=== PATIENT | female | born 1970 | race Caucasian/White ===

== ENCOUNTER 2022-07-21 08:06 | Outpatient (CLI) | payer BC, SELFPAY ==
--- NOTE | 2022-07-21 08:15 | MR_ITS ---
[address] [address] Phone:?[phone] Fax:?[phone] Referring Physician Information: Yordan Quiroga M.D. [id number] [facility] [address] Phone:?[phone] Fax:?[phone] Patient:Rut Bermudez D.O.B:?1970 Sex:?Female Phone:?[phone] [facility] MRN:?[id number] Exam Date:?07/21/2022 ? EXAM: MRI of the RIGHT KNEE, without contrast CLINICAL: Right knee pain and swelling. Evaluate for medial meniscal tear versus medial tibial stress reaction. COMPARISONS: None available. TECHNICAL: MR sequences of the right knee: sagittals: PD, PDFS coronals: PD, T2FS axials: PD, PDFS SEDATION: None. CONTRAST: None. FINDINGS: Ligaments: ACL: Intact ACL anteromedial and posterolateral bundles, without sprain or tear. PCL: Intact PCL, without acute or chronic injury. MCL: Intact MCL superficial and deep layers, without injury. LCL: Intact LCL, without injury. Posterolateral corner: Popliteus, biceps femoris, iliotibial band, and the popliteofibular ligament appear intact. Posteromedial corner: Semimembranosus, pes anserine tendons and posterior oblique ligament appear intact. Extensor mechanism: Patellar tendon: Intact, without tendinopathy. Quadriceps tendon: Intact, without tendinopathy. Retinacula: Medial and lateral retinacula are intact. Fat pads: Unremarkable infrapatellar Hoffa's, quadriceps and prefemoral fat pads. Patellofemoral joint: Patella: Full thickness chondral loss involves the medial patellar facet and patellar median ridge with mild subchondral reactive edema/cystic change involving the junction of the patellar median ridge and lateral patellar facet. Deep chondral fissuring involves the lateral facet. Trochlea: Grade 2-3 chondral loss involves the lateral trochlea. Deep chondral fissuring involves the central trochlea on axial series 4 images 14-15. Medial compartment: Medial meniscus: No evidence of discrete meniscal tear or meniscal displacement. Medial cartilage: No significant chondromalacia. Lateral compartment: Lateral meniscus: No evidence of discrete meniscal tear or meniscal displacement. Lateral cartilage: No significant chondromalacia. Knee joint: Effusion: Physiologic right knee effusion. Intra-articular bodies:?No convincing bodies identified. Popliteal cyst: None. Bones: There is increased bone marrow edema involving the medial tibial plateau with an apparent small subchondral fracture line involving the peripheral medial tibial plateau on coronal series 7 images 17-19. Remaining imaged osseous structures appear unremarkable. IMPRESSION: 1. Increased bone marrow edema involving the medial tibial plateau, with an apparent small subchondral fracture involving the peripheral medial tibial plateau. 2. 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 3. No evidence of meniscal tear or ligamentous injury. [facility] Electronically signed on 07/21/2022 1:15:00 PM by Nolan Nolasco D.O.
== END 2022-07-21 08:07 | disposition home or self-care (01) ==
LOC: MRI 08:07
PROVIDERS: Visit Provider Orthopaedic Surgery Sports Medicine
DX: M25.561 Pain in right knee (principal); M22.41 Chondromalacia patellae, right knee; S82.141A Displaced bicondylar fracture of right tibia, initial encounter for closed fracture
CPT/HCPCS: 73721

== ENCOUNTER 2023-05-22 09:38 | Outpatient (CLI) | payer BC, SELFPAY | END 2023-05-22 09:39 | disposition home or self-care (01) | PROVIDERS: PCP Family Medicine; Visit Provider Family Medicine | DX: Z00.00 Encounter for general adult medical examination without abnormal findings (principal); R03.0 Elevated blood-pressure reading, without diagnosis of hypertension; E03.9 Hypothyroidism, unspecified; R53.83 Other fatigue; M25.50 Pain in unspecified joint; Z13.6 Encounter for screening for cardiovascular disorders | CPT/HCPCS: 80053; 80061; 82306; 82607; 84443 ==

== ENCOUNTER 2024-04-15 09:40 | Outpatient (CLI) | payer BC, SELFPAY ==
--- OUTSIDE RECORDS SUMMARY | 2024-04-19 16:22 | XMS_ITS ---
Author Organization [facility] Address [address] [place] [address] Care Team Providers Care Nurse Esthetician Name Role Phone Unavailable Unavailable Unavailable Surgery Details Not on file Complications Check Surgery Details section. Procedure Estimated Blood Loss Check Surgery Details section. Procedure Findings Check Surgery Details section. Procedure Specimens Taken Check Surgery Details section.
--- OUTSIDE RECORDS SUMMARY | 2024-04-19 16:22 | XMS_ITS | Clinical Summary ---
Author Organization [facility] Address [place], [place] [address] Care Team Providers Care Minister Name Role Phone Galileo Montoya NP Primary Care Provider Tiffanie vailable Allergies Active Allergy Reactions Criticality Noted Date Comments Adhesive Tape-Silicones Rash 05/28/2009 Cat Dander Other - Describe In Comment Field 05/02/2008 Medications Medication Sig Dispensed Refills Start Date End Date Status citalopram (CELEXA) 10 mg tablet TAKE 1 TABLET (10 MG) BY MOUTH DAILY. 03/09/2021 Active estradioL (ESTRACE) 0.5 mg tablet TAKE 1 TABLET (0.5 MG) BY MOUTH DAILY. 03/09/2021 Active Advair Diskus 250-50 mcg/dose diskus inhaler INHALE 1 PUFF 2 (TWO) TIMES A DAY. 03/09/2021 Active levothyroxine (SYNTHROID) 75 mcg tablet TAKE 1 TABLET (75 MCG) BY MOUTH EVERY MORNING BEFORE BREAKFAST. 03/09/2021 Active lisinopriL (PRINIVIL; ZESTRIL) 5 mg tablet TAKE 1 TABLET (5 MG) BY MOUTH DAILY. 03/09/2021 Active Contrave 8-90 mg Extended-Release tablet Take 1 Tablet by mouth once daily. 03/14/2021 Active polyethylene glycol-electrolyte (GOLYTELY) 236-22.74-6.74 -5.86 gram suspensionIndication s:Diarrhea, unspecified type Drink 3 quarts the day prior to colonoscopy (until no liquid or solid stool ) and 1 quart 6 hours prior to the colonoscopy 4000 mL 03/15/2021 Active Social History Tobacco Use Types Packs/Day Years Used Date Smoking Tobacco: Never Smokeless Tobacco: Never Tobacco Cessation:Counseling Given: Yes Social Connections Answer Date Recorded Frequency of Communication with Friends and Fami ly Not on file 09/07/2021 Financial Resource Strain Answer Date R ecorded Difficulty of Paying Living Expenses Not on file 09/07/2021 Difficulty of Paying Living Expenses Not on file 09/07/2021 Sex and Gender Information Value Date Recorded Sex Assigned at Not on file Gender Identity Not on file Sexual Orientation Not on file Obstetrics History Last Filed Vital Signs Vital Sign Reading Time Taken Comments Blood Pressure 115/69 03/15/2021 3:11 PM CDT Pulse 68 03/15/2021 3:11 PM CDT Temperature - - Respiratory Rate - - Oxygen Saturation 96% 03/15/2021 3:11 PM CDT Inhaled Oxygen Concentration - - Weight 84.1 kg (185 lb 6.4 oz) 03/15/2021 3:11 P M CDT Height - - Body Mass Index - - Plan of Treatment Health Maintenance Due Date Last Done Comments Tdap 1982 Depression screening for age 12+ 1983 HIV for age 15-65 1986 BMI (ht and wt on same day) for age 18+ 1989 Hepatitis C screening for ag e 18-79 1989 Tetanus booster 1991 Pap test for age 21-65 1992 Lipids for age 45-75 2016 Mammogram for age 45-75 2016 Zoster (shingles) series for age 50+ (1 of 2) 2021 COVID-19 vaccine series (2022-24 season) 2023 08/07/2021, 10/26/2020, 10/05/2020 Influenza for age 50-64 05/08/2024 Colonoscopy through age 75 04/05/203104/05, 04/05/2021 Pneumococcal series for age 6-64 Aged Out No longer eligible b ased on patient's age to complete this topic Procedures Procedure Name Priority Date/Time Associated Diagnosis Comments COLONOSCOPY SCREENING Routine 04/05/2021 10:53 AM CDT Screen for colon cancer from Last 3 Months or Most Recently Relevant to Health Maintenance Results * COLONOSCOPY (04/05/2021 11:18 AM CDT) 04/05/2021 11:1 8 AM CDT Narrative Transcriptions Dean Noriega MD - 04/05/2021 12:33 PM CDT Patient Name: Ashley Bermudez Procedure Date: 04/05/2021 Gender: Female Date of : 1970 Admit Type: Outpatient Procedure: Colonoscopy Proceduralist: Dean Noriega MD , Ann Ibanez, RN(Nurse) Referring MD: Dean Norigea Indications/Pre-Op Diagnosis: Screening for colorectal malignant neoplasm, This is the patient's first colonoscopy, Incidental diarrhea noted Medications: Fentanyl 200 micrograms IV, Midazolam 4 mgIV, The level of sedation administered wasmoderate Procedure Description: The patient had risks, benefits and alternatives explained to andgave informed consent. The patient had a stable cardiopulmonary status and judged an adequate candidate for conscious sedation. The [id number] was passed through the anus and advanced to 8cm into the ileum. The colonoscopy was performed without difficulty. The patient tolerated the procedure well. The quality of the bowel preparation was good. The terminal ileum, ileocecal valve,appendiceal orifice, and rectum were photographed. Complications: No immediate complications. Estimated Blood Loss & Specimen: Estimated blood loss: none. Specimen collected - Yes and sent to Laboratory Findings: The perianal and digital rectal examinations were normal. The terminal ileum appeared normal. Biopsies were taken with a cold forceps for histology. The entire examined colon appeared normal. Biopsies were taken with a cold forceps in the entire colon for histology. Impressions/Post-Op Diagnosis: - The examined portion of the ileum was normal. Biopsied. - The entire examined colon is normal. - Biopsies were taken with a cold forceps for histology in the entire colon. Recommendation: - Patient has a contact number available for emergencies. The signsand symptoms of potential delayed complications were discussed with the patient. Return to normal activities tomorrow. Written discharge instructions were provided to the patient. - Resume previous diet. - Continue present medications. - Await pathology results. - Repeat colonoscopy is recommended. The colonoscopy date will be determined after pathology results from today's exam become available for review. Moderate Sedation: Moderate (conscious) sedation was administered by the endoscopy nurse and supervised by the endoscopist. The following parameters were monitored: oxygen saturation, heart rate, respiratory rate, blood pressure, adequacy of pulmonary ventilation and reponse to care. Please refer to the patient's medical record flowsheets and nursing notes for moderate sedation details. Total physician intraservice time was 27 minutes. Dean Noriega MD 04/05/2021 12:32:44 PM This report has been signed electronically. Note Initiated On: 04/05/2021 11:18 AM Procedure Code(s): --- Professional --- 58816, Colonoscopy, flexible; with biopsy, single or multiple Diagnosis Code(s): --- Professional --- Z12.11, Encounter for screening formalignant neoplasm of colon CPT copyright 2020 [employer]. All rights reserved. The codes documented in this report are preliminary and upon heat curer reviewmay be revised to meet current compliance requirements. Scope In: 11:43:46 AM Scope Withdrawal Time 0 hours 8 minutes 5 seconds Scope Out: 12:09:02 PM Dean Noriega MD PROCEDURE ORD from Last 3 Months or Most Recently Relevant to Health Maintenance Care Teams Minister Relationship Specialty Start Date End Date Galileo Montoya NP PCP - General Nurse Practitioner 04/05/21
--- OUTSIDE RECORDS SUMMARY | 2024-04-19 16:22 | XMS_ITS | Referral Summary ---
Author Organization [facility] Address [address] [place] [address] Care Team Providers Care Assembler Insulator Name Role Phone Randall Candelaria P.A.-C. Primary Care Provider [phone] Source Comments Patient records contain information from all sites at [facility]. For routine questions regarding patient records, call [phone] during business hours, M-F 8:00 AM - 5:00 PM Central Time. Record requests for emergency care only can be directed to [phone] at any time.[facility] Encounters Date Type Department Care Team Description 02/09/2024 Orders Only [facility] PCP TH MNT Yazmin Chow MPAS, P.A.-C. Monitoring For Therapeutic Drug Therapy; Hypothyroidism from Last 3 Months Allergies Active Allergy Reactions Criticality Noted Date Comments Adhesive Tape-Silicones Rash 05/28/2009 Cat Dander Other (see comments) 05/02/2008 Medications Medication Sig Dispensed Refills Start Date End Date Status ibuprofen (for_ADVIL,MOTRIN) 200 mg tablet Take 2 tablets by mouth every 4 (four) hours as needed. 07/22/2016 Active fexofenadine (for_ALLEGRA) 180 mg tablet Take 1 tablet by mouth daily. 05/08/2015 Active scopolamine base (TRANSDERM SCOP) 1 mg over [address] 1 patch on the skin every third day as needed (nausea). 10 patch 1 04/29/2022 Active Advair Diskus 250-50 mcg/act diskus inhaler Inhale 1 puff 2 (two) times a day. Rinse mouth with water after use to reduce aftertaste and incidence of candidiasis. Do not swallow. 180 each 3 06/09/2022 Active albuterol (Ventolin HFA) 90 mcg/actuation inhaler Inhale 2 puffs every 4 (four) hours as needed for wheezing or shortness of breath. 24 g 3 06/09/2022 Active citalopram (CeleXA) 10 mg tablet Take 1 tablet (10 mg total) by mouth daily. 90 tablet 3 06/09/2022 Active lisinopriL (PRINIVIL,ZESTRIL) 5 mg tablet Take 0.5 tablets (2.5 mg total) by mouth daily. 90 tablet 3 06/09/2022 Active levothyroxine (SYNTHROID, LEVOTHROID) 75 mcg tablet TAKE 1 TABLET (75 MCG) BY MOUTH EVERY MORNING BEFORE BREAKFAST. 90 tablet 3 10/30/2022 Active estradioL (ESTRACE) 0.5 mg tablet TAKE ONE-HALF TABLET (0.25MG) BY MOUTH DAILY. 45 tablet 3 10/15/2023 Active Active Problems Problem Noted Date Diagnosed Date Therapy Estrogen Personal History 06/09/2022 Overview (06/09/2022): Per Dr. Avendano note in 2018 recommended to continue on estrogen replacement therapy till 51 or 52 then decreased from 0.5 mg 2.2 5 mg for another 5 years and then could consider discontinuing Assessment & Plan (06/09/2022 4:21 PM CDT): Recommendations were reviewed with patient agreed to start cutting medication in half. Overweight Body Mass Index 25-29.9 Adult 019 Overview (12/28/2020): Current BMI: 28 Current Weight: 82kg Highest Weight: 102 kg Lowest Weight: 175# Goal Weight: 180# Wt loss motivation: BP, feeling better Exercise: Patient has a current exercise routine, which includes stair stepper, walks, free weights: plans to start with new schedule; will work in garden when nice Diet: low carb Water Intake: work on, encouraged Meal Tracking: yes Sleep Apnea: no but sleep worse with higher wt Medications: phentermine previously Contrave started 12.28.20 Discussed that phentermine is recommended couple months at a time. She has trialed this previously and done well but then after the medication she does tend to bump back up. Recommended that Contrave may help cut some the cravings that she notes she has. She is going to work on the above goals and trial Contrave which would be safe for longer term. If this isn't covered by insurance am happy to order is just Wellbutrin. Assessment & Plan (07/09/2020 10:54 AM CRAFT COORDINATOR): We are going to try decreasing her phentermine from 37.5-30. Working continue this through the holidays. At that time we can decide on whether she can go on to the 15 mg are discontinuing altogether. She has lost 57 lb so far and is feeling better overall. Blood pressures are running good she feels like she has more energy and feels like she has adapted some new eating habits and lifestyle habits. Assessment & Plan (11/18/2019 3:29 PM CDT): Plans to continue on 30 mg of phentermine with nurse visits for follow-up until she reached her goal weight of 180 lb. At that time were going to decrease her to the 15 mg a phentermine to continue taper off. Commended on the changes she has made and the improvement with her weight. Blood pressure is also improved with the changes. Unsure if this is related to the low-dose lisinopril or the weight loss. If she continues to run on the low side with could trial a 2.5 mg lisinopril set of a 5. Assessment & Plan (07/22/2019 4:24 PM CRAFT COORDINATOR): Will use phentermine for one-month follow-up with nurse visit in 1 month and 2 month shanae. If she wishes to proceed past 3 months then she needs to follow back up with myself. Has utilize medication before without issues. Do want to watch closely her blood pressure at follow-up with nurses as well as has had some elevation. She wants to try weight loss in diet 1st to help control this. Elevated Blood Pressure 07/22/2019 Overview (07/06/2020): Lisinopril Assessment & Plan (06/09/2022 4:19 PM CDT): Had discontinued lisinopril due to feeling lightheaded we Cong will restart at 2.5 mg half a tablet of 5 mg to avoid the lightheaded feeling. Just concerned as the diastolic is slightly high. She is going to monitor this on her own and let me know in a couple weeks where she is. Assessment & Plan (07/09/2020 10:52 AM CRAFT COORDINATOR): Last BMP was normal in November Blood pressure has improved. She is going to start taking half of the lisinopril and send me blood pressures in 2 weeks. If she is doing well on the lower dose we can always change her to a 2.5 mg tablet or consider even stopping the medication with weight loss she may do okay without it. Anxiety Generalized Disorder 05/07/2015 Overview (07/22/2019): Celexa 10 mg Assessment & Plan (07/22/2019 4:24 PM CRAFT COORDINATOR): Continue current dose. Hypothyroidism 05/07/2015 Overview (07/22/2019): Synthroid 75 mcg Assessment & Plan (06/09/2022 4:19 PM CDT): Well controlled at 2.2 Assessment & Plan (07/06/2020 3:50 PM CDT): TSH 2.1 Lynd Assessment & Plan (07/22/2019 4:23 PM CRAFT COORDINATOR): TSH elevated at 6.2 with weight grain and fatigue and some brain fog. Will increase Synthroid to 75 mcg from 50 mcg. Will help with weight loss as well. Asthma NOS 08/27/2011 Overview (07/22/2019): Albuterol PRN Advair BID Assessment & Plan (06/09/2022 4:19 PM CDT): Concerned that at the beginning of the year they are getting a different insurance and wonders about Advair coverage. Did advise that I am happy to switch to a different brand if it is necessary at that time. Assessment & Plan (07/22/2019 2:50 PM CRAFT COORDINATOR): Well controlled; used albuterol in [place] a few times Rhinitis Allergic 08/27/2011 Overview (07/22/2019): Patricia Flonase inhaler Immunizations Name Administration Dates Next Due DTaP (Infanrix, Tripedia) 11/30/2007 H1N1 All Forms 07/10/2009 HepB Pediatric/Adolescent 01/20/1994,11/18/1993 HepB, Unspecified 02/03/1997 Influenza Split 04/07/2009 Influenza, Unspecified 05/31/2013,2011,06/03/2011,2009,07/21/2008,07/16/2001 PPSV23 07/06/2018 Pneumococcal Conjugate(PCV), Unspecified 06/09/2022(Deferred: Patient decision) RZV (SHINGRIX) 06/09/2022(Deferred: Patient dec ision) SARS-COV-2 (COVID-19) - PFIZ ER (Discontinued)(12 years or older) 08/07/2021,10/26/2020,10/05/2020 Td (Adult), adsorbed 05/19/2017,01/18/1999 Tdap 11/30/2007 influenza vaccine quad (FLUZONE/FLUARIX) (6 months and older)(PF) 08/07/2021,07/09/2020,07/22/2019,2017,05/29/2015,07/10/2009 Social History Tobacco Use Types Packs/Day Years Used Date Smoking Tobacco: Never Smokeless Tobacco: Never Alcohol Use Standard Drinks/Week Comments Yes 0 (1 standard drink = 0.6 oz pur e alcohol) occasional Humiliation, Afraid, Rape, and Kick questionnair e Answer Date Recorded Within the last year, have y ou been afraid of your partner or ex-partner? No 12/28/2020 Within the last year, have y ou been humiliated or emotionally abused in other ways by your partner or ex-partner? No Within the last year, have y ou been kicked, hit, slapped, or otherwise physically hurt by your partner or ex-partner? No 12/28/2020 Within the last year, have y ou been raped or forced to have any kind of sexual activity by your partner or ex-partner? No 12/28/2020 Social Connection and Isolat ion Panel [NHANES] Answer Date Recorded In a typical week, how many times do you talk on the phone with family, friends, or neighbors? More than three times a week 12/28/2020 How often do you get togethe r with friends or relatives? Twice a week 12/28/2020 How often do you attend chur or moravian services? 1 to 4 times per year 12/28/2020 Do you belong to any clubs o r organizations such as mormon groups, unions, fraternal or athletic groups, or school groups? No 12/28/2020 How often do you attend meet ings of the clubs or organizations you belong to? Never 12/28/2020 Are you , , di vorced, , never , or living with a partner? 12/28/2020 AUDIT-C Answer Date Recorded Q1: How often do you have a drink containing alc ohol? 2-4 times a month 12/28/2020 Q2: How many drinks containi ng alcohol do you have on a typical day when you are drinking? 1 or 2 12/28/2020 Q3: How often do you have si x or more drinks on one occasion? Never 12/28/2020 Overall Financial Resource Strain (CARDIA) Answe r Date Recorded How hard is it for you to pa y for the very basics like food, housing, medical care, and heating? Not very hard 12/28/2020 PHQ-2 Answer Date Recorded PHQ-2 Score 0 06/09/2022 [facility] - Occupational Stress Questionnaire Answer Date Recorded Do you feel stress - tense, restless, nervous, or anxious, or unable to sleep at night because your mind is troubled all the time - these days? Only a little 12/28/2020 Exercise Vital Sign Answer Date Recorde d On average, how many days pe r week do you engage in moderate to strenuous exercise (like a brisk walk)? 3 days 12/28/2020 On average, how many minutes do you engage in exercise at this level? 30 min 12/28/2020 Hunger Vital Sign Answer Date Recorded Within the past 12 months, y ou worried that your food would run out before you got the money to buy more. Never true 12/29/19 21 Within the past 12 months, t he food you bought just didn't last and you didn't have money to get more. Never true 12/28/2020 PRAPARE - Transportation Answer Date Re corded In the past 12 months, has l ack of transportation kept you from medical appointments or from getting medications? No 12/07 In the past 12 months, has l ack of transportation kept you from meetings, work, or from getting things needed for daily living? No 12/28/2020 Housing Stability Vital Sign Answer Lui e Recorded In the last 12 months, was t here a time when you were not able to pay the mortgage or rent on time? No 12/28/2020 In the last 12 months, how many places have you lived? 1 12/28/2020 In the last 12 months, was t here a time when you did not have a steady place to sleep or slept in a senior care (including now)? No 12/28/2020 Depression Answer Date Recor ded PHQ-9 Total Score (max 27) 4 06/09 Nutrition Answer Date Recorded Nutrition: EVOO Fat Source Yes 12/28 On average, how many serving s of fruits and vegetables do you eat per day (serving size is equal to 1 cup or approximately the size of a tennis ball)? 2-3 12/28/2020 Dental Answer Date Recorded Dental: Regular Dentist Unknown 02/04/20 24 Employment Answer Date Recorded Employment status Employed and actively working without restrictions 12/28/2020 Education Answer Date Recorded What is the highest level of school you have completed or the highest degree you have received? Associate degree: occupational, technical, or vocational program 03/27/2019 Sex and Gender Information Value Date Recorded Sex Assigned at Female 08/02/2018 4:15 AM CRAFT COORDINATOR Gender Identity Female 08/02/2018 4:15 AM CRAFT COORDINATOR Sexual Orientation Straight 08/02/2018 4: 15 AM CRAFT COORDINATOR Last Filed Vital Signs Vital Sign Reading Time Taken Comments Blood Pressure 134/87 06/09/2022 3:45 PM CDT Pulse 87 06/09/2022 3:45 PM CDT Temperature 36.6 ??C (97.9 ??F) 06/09/2022 3:45 PM CD T Respiratory Rate 18 06/09/2022 3:45 PM CDT Oxygen Saturation 98% 06/09/2022 3:45 PM CDT room air Inhaled Oxygen Concentration - - Weight 86.9 kg (191 lb 9.3 oz) 06/09/2022 3:45 P M CDT Height 171 cm (5' 7.32) 06/09/2022 3:45 PM CDT Body Mass Index 29.72 06/09/2022 3:45 PM CDT Plan of Treatment Not on file Medical Devices Implanted Type Area Industrial Designer Device Identifier Shelf Expiration Date Model / Serial / Lot Sm Frag-Screw Canc Part 4 X 45 - Bronson [id number] Implanted:Qty: 1 on 05/02/2008 Hardware e.g. pins/screws/ rods Depuy Synthes Description:Device Manufactu rer - Synthes. Device Status Text - [id number]. Small Frag-Screw Evan 3.5x24 - Bronson [id number] Implanted:Qty: 1 on 05/02/2008 Hardware e.g. pins/screws/ rods Depuy Synthes Description:Device Manufactu rer - Synthes. Device Status Text - [id number]. Sm Frag-Screw Canc Part 4 X 28 - Bronson [id number] Implanted:Qty: 1 on 05/02/2008 Hardware e.g. pins/screws/ rods Depuy Synthes Description:Device Manufactu rer - Synthes. Device Status Text - [id number]. Syn-Plate 3.5 T 3x5ho Rt - Bronson [id number] Implanted:Qty: 1 on 05/02/2008 Hardware e.g. pins/screws/ rods Depuy Synthes Description:Device Manufactu rer - Synthes. Device Status Text - [id number]. Small Frag-Screw Evan 3.5x16 - Bronson [id number] Implanted:Qty: 1 on 05/02/2008 Hardware e.g. pins/screws/ rods Depuy Synthes Description:Device Manufactu rer - Synthes. Device Status Text - [id number]. Indore-Mitek Mini Quick 2-0 - Bronson [id number] Implanted:Qty: 1 on 05/02/2008 Hardware e.g. pins/screws/ rods Depuy Mitek Description:Device Manufactu rer - Mitek [employer] Device Status Text - [id number]. Sm Frag-Screw Canc Part 4 X 24 - Bronson [id number] Implanted:Qty: 2 on 05/02/2008 Hardware e.g. pins/screws/ rods Depuy Synthes Description:Device Manufactu rer - Synthes. Device Status Text - [id number]. Sm Frag-Screw Canc Part 4 X 30 - Bronson [id number] Implanted:Qty: 1 on 05/02/2008 Hardware e.g. pins/screws/ rods Depuy Synthes Description:Device Manufactu rer - Synthes. Device Status Text - [id number]. Sm Frag-Screw Canc Part 4 X 26 - Bronson [id number] Implanted:Qty: 1 on 05/02/2008 Hardware e.g. pins/screws/ rods Depuy Synthes Description:Device Manufactu rer - Synthes. Device Status Text - [id number]. Small Frag-Screw Evan 3.5x20 - Bronson [id number] Implanted:Qty: 1 on 05/02/2008 Hardware e.g. pins/screws/ rods Depuy Synthes Description:Device Manufactu rer - Synthes. Device Status Text - [id number]. Procedures Procedure Name Priority Date/Time Associated Diagnosis Comments BI BREAST SCREENING BILATERAL WITH TOMOSYNTHESIS RAD - Routine (most inpatients and all outpatients) 08/22/2022 1:00 PM CRAFT COORDINATOR Screening Mammogram Breast Cancer LIPID PANEL, S Routine 05/02/2022 11:13 AM CDT Screening Lipid THYROID-STIMULATING HORMONE-SENSITIVE (S-TSH) Routine 05/02/2022 11:13 AM CDT Hypothyroidism BASIC METABOLIC PANEL, S/P Routine 08/07/2021 4:17 PM CRAFT COORDINATOR Preoperative Exam from Last 3 Months or Most Recently Relevant to Health Maintenance Results * BI Breast Screening Bilateral with Tomosynthesis (08/22/2022 1:00 PM CRAFT COORDINATOR) Anatomical Region Laterality Modality Breast, Breast Imaging RST L OS, Breast Imaging ARZ LOS, Breast Imaging FLA LOS Bilateral Mammography 08/22/2022 4:24 PM CRAFT COORDINATOR Impressions 08/22/2022 4:25 PM CRAFT COORDINATOR Negative. RECOMMENDATION: ??Annual Screening Mammogram ASSESSMENT: ??BI-RADS: 1: Negative. Narrative 08/22/2022 4:25 PM CRAFT COORDINATOR EXAM: ??BI BREAST SCREENING BILATERAL WITH TOMOSYNTHESIS Current study was evaluated with a Computer Aided Detection (CAD) system. INDICATION: ??Screening mammogram. COMPARISON: ??Prior exam(s) were available and reviewed for comparison. DENSITY: ??b. There are scattered areas of fibroglandular density. FINDINGS: ??No mammographic findings of malignancy. Procedure Note Rowdy Torrez M.D. - 08/22/2022 EXAM: BI BREAST SCREENING BILATERAL WITH TOMOSYNTHESIS Current study was evaluated with a Computer Aided Detection (CAD) system. INDICATION: Screening mammogram. COMPARISON: Prior exam(s) were available and reviewed for comparison. DENSITY: b. There are scattered areas of fibroglandular density. FINDINGS: No mammographic findings of malignancy. IMPRESSION: Negative. RECOMMENDATION: Annual Screening Mammogram ASSESSMENT: BI-RADS: 1: Negative. Galileo Montoya APRN C.N.P., M.S.N. IMG BI PROCEDURES * Lipid Panel (05/02/2022 11:13 AM CDT) Triglycerides 88 mg/dL 05/02/2022 12:08 PM CDT AUST Comment: ----REFERENCE VALUE---- Normal: <150 mg/dL Borderline High: 150-199 mg/dL High: 200-499 mg/dL Very High: > or =500 mg/dL Cholesterol, Total 189 mg/dL 2021 12:08 PM CDT AUST Comment: ----REFERENCE VALUE---- Desirable: < 200 mg/dL Borderline High: 200 - 239 mg/dL High: > or = 240 mg/dL Cholesterol, LDL, Calculated 116 mg/dL 05/02/2022 12:08 PM CDT AUST Comment: ----REFERENCE VALUE---- Desirable: <100 mg/dL Above Desirable: 100-129 mg/dL Borderline High: 130-159 mg/dL High: 160-189 mg/dL Very High: >=190 mg/dL ----ADDITIONAL INFORMATION---- LDL cholesterol calculated using the Padgett/NIH equation. Cholesterol, HDL 57 >=50 mg/dL 05/02/20 12:08 PM CDT [facility]UST Cholesterol, Non-HDL, Calculated 132 mg/dL 05/02/2022 12:08 PM CDT AUST Comment: ----REFERENCE VALUE---- Desirable: <130 mg/dL Above Desirable: 130-159 mg/dL Borderline High: 160-189 mg/dL High: 190-219 mg/dL Very High: > or =220 mg/dL Fasting (8 HR or more) No 05/02/2022 11:15 AM CDT [facility]UST Blood (Blood, Venous) 05/02/2022 11:13 AM CDT 05/02/2022 11:15 AM CDT Jorge L Greenwood APRNNJimmy., M.S.N. LAB BLOOD ADD-ON Performing Organization Address City/[facility]/ZIP Co de Phone Number [facility] [address] [place] [address], [facility] [address] [place] [address] * S-TSH (Thyroid-Stimulating Hormone - Sensitive) (05/02/2022 11:13 AM CDT) TSH, Sensitive 2.2 0.3 - 4.2 mIU/L 05/02/2022 12:18 PM CDT [facility]UST Blood (Blood, Venous) 05/02/2022 11:13 AM CDT 05/02/2022 11:15 AM CDT Jorge L Greenwood APRNNJimmy., M.S.N. LAB BLOOD ADD-ON Performing Organization Address [facility]/ZIP Co de Phone Number [facility] [address] [place] [address], [facility] [address] [place] [address] * Basic Metabolic Panel (08/07/2021 4:17 PM CRAFT COORDINATOR) Potassium, P 4.4 3.6 - 5.2 mmol/L 08/07/2021 4:37 PM CRAFT COORDINATOR FIDENCIO Sodium, P 137 135 - 145 mmol/L 08/07/2021 4:37 PM CRAFT COORDINATOR FIDENCIO Chloride, P 102 98 - 107 mmol/L 08/07/2021 4:37 PM CRAFT COORDINATOR FIDENCIO Bicarbonate, P 26 22 - 29 mmol/L 08/07/2021 4:37 PM CRAFT COORDINATOR FIDENCIO Anion Gap, P 9 7 - 15 08/07/2021 4:37 PM CRAFT COORDINATOR FIDENCIO BUN (Blood Urea Nitrogen), P 17 6 - 21 mg/dL 08/07/2021 4:37 PM CRAFT COORDINATOR FIDENCIO Creatinine 0.78 0.59 - 1.04 mg/dL 08/07/2021 4:37 PM CRAFT COORDINATOR FIDENCIO eGFR-Black/Afric an Cypriot >90 >=60 mL/min/BSA 08/07/2021 4:37 PM CRAFT COORDINATOR FIDENCIO Comment: ----ADDITIONAL INFORMATION---- Estimated GFR calculated using the 2009 CKD_EPI creatinine equation. eGFR Non-Black/Regine n Cypriot 89 >=60 mL/min/BSA 08/07/2021 4:37 PM CRAFT COORDINATOR FIDENCIO Comment: ----ADDITIONAL INFORMATION---- Estimated GFR calculated using the 2009 CKD_EPI creatinine equation. Calcium, Total, P 9.5 8.6 - 10.0 mg/dL 08/07/2021 4:37 PM CRAFT COORDINATOR FIDENCIO Glucose, P 103 70 - 140 mg/dL 08/07/2021 4:37 PM CRAFT COORDINATOR FIDENCIO Blood (Blood, Venous) 08/07/2021 4:17 PM CRAFT COORDINATOR 08/07/2021 4:18 PM CRAFT COORDINATOR Elyssa Altman APRN, C.N.P., D.N.P. L AB BLOOD ADD-ON [facility] [address] [facility] [place], [place] [address], [facility] [place] [facility] [place] [address] [place] [address] from Last 3 Months or Most Recently Relevant to Health Maintenance Care Teams Assembler Insulator Relationship Specialty Start Date End Date Randall Candelaria P.A.-C. [address] [place] [id number] PCP - General 03/09/24
--- OUTSIDE RECORDS SUMMARY | 2024-04-19 16:22 | XMS_ITS | Clinical Summary ---
Author Organization [facility] Address [address] [place] [id number] Care Team Providers Care House Furnishings Supervisor Name Role Phone Randall Candelaria P.A.-C. Primary Care Provider [phone] Source Comments Patient records contain information from all sites at [facility]. For routine questions regarding patient records, call [phone] during business hours, M-F 8:00 AM - 5:00 PM Central Time. Record requests for emergency care only can be directed to [phone] at any time.[facility] Allergies Active Allergy Reactions Criticality Noted Date [...] worse with higher wt Medications: phentermine previously Varg[place]se started 12.28.20 Discussed that phentermine is recommended [...] Wellbutrin. Assessment & Plan (07/09/2020 10:54 AM CUSTOMER SERVICE ADVOCATE): We are going to try decreasing her [...] 5. Assessment & Plan (07/22/2019 4:24 PM CUSTOMER SERVICE ADVOCATE): Will use phentermine for one-month follow-up with [...] is. Assessment & Plan (07/09/2020 10:52 AM CUSTOMER SERVICE ADVOCATE): Last BMP was normal in November Blood [...] mg Assessment & Plan (07/22/2019 4:24 PM CUSTOMER SERVICE ADVOCATE): Continue current dose. Hypothyroidism 05/07/2015 Overview (07/22/2019): Synthroid 75 mcg Assessment & Plan (06/09/2022 4:19 PM CDT): Well controlled at 2.2 Assessment & Plan (07/06/2020 3:50 PM CDT): TSH 2.1 Albert Assessment & Plan (07/22/2019 4:23 PM CUSTOMER SERVICE ADVOCATE): TSH elevated at 6.2 with weight grain [...] time. Assessment & Plan (07/22/2019 2:50 PM CUSTOMER SERVICE ADVOCATE): Well controlled; used albuterol in [place] a few times Rhinitis Allergic 08/27/2011 Overview (07/22/2019): Patricia Flonase inhaler Encounters Date Type Department Care Team Description 02/09/2024 Orders Only [facility] PCP [facility] MNT Yazmin Chow, MPAS, P.A.-C. Monitoring For Therapeutic Drug Therapy; Hypothyroidism from Last 3 Months Immunizations Name Administration Dates Next Due DTaP [...] quad (FLUZONE/FLUARIX) (6 months and older)(PF) 08/07/2021,07/09/2020,07/22/2019,2017,05/29/2015,07/10/2009 Family History Medical History Relation Name Comments Asthma Brother Colectomy Father Colitis Father Breast cancer Mother Relation Name Status Comments Brother Father Mother Social History Tobacco Use Types Packs/Day Years [...] How often do you attend chur or denominational services? 1 to 4 times per year 12/28/2020 Do you belong to any clubs o r organizations such as methodist groups, unions, fraternal or athletic groups, or [...] Answer Date Recorded PHQ-2 Score 0 06/09/2022 [facility] [place] of Occupat ional Health - Occupational Stress [...] place to sleep or slept in a fpc (including now)? No 12/28/2020 Depression Answer Date [...] Sex Assigned at Female 08/02/2018 4:15 AM CUSTOMER SERVICE ADVOCATE Gender Identity Female 08/02/2018 4:15 AM CUSTOMER SERVICE ADVOCATE Sexual Orientation Straight 08/02/2018 4: 15 AM CUSTOMER SERVICE ADVOCATE Last Filed Vital Signs Vital Sign Reading [...] 06/09/2022 3:45 PM CDT Plan of Treatment Health Maintenance Due Date Last Done Comments CT Colonography 1971 Cologuard 1971 FIT 1971 Hepatitis C Screening 1971 Hepatitis B Vaccines (2 of 3 - 19+ 3-dose series) 03/03/1997 02/03/1997, 01/20/1994, 11/18/1993 Pneumococcal vaccine (0-64 y ears) (2 of 2 - PCV) 07/06/2019 07/06/2018 Zoster Vaccines (1 of 2) 2021 Creatinine Level (Kidney Fun ction Test) 08/07/2022 08/07/2021, 11/15/2019, 03/28/2015, Additional history exists Potassium Level 08/07/2022 08/07/2021, 11/05, 03/28/2015, Additional history exists Sodium Level 08/07/2022 08/07/2021, 11/05, 03/28/2015, Additional history exists Thyroid Stimulating Hormone (TSH) test for thyroid function 05/02/2023 05/02/2022, 04/17/2020, 11/15/2019, Additional history exists COVID-19 Vaccine (2022-2 4 season) 2023 04/25/2022, 08/07/2021, 10/26/2020, Additional history exists Mammogram 08/22/2023 08/22/2022, 12/0 09/2019, 07/05/2019, Additional history exists Depression Screening (Annual PHQ-2) 09/07/2023 Influenza Vaccine (#1) 2024 3, 08/07/2021, 07/09/2020, Additional history exists Fasting Glucose for Diabetes Screening 08/07/2024 08/07/2021, 11/15/2019, 07/05/2019, Additional history exists Lipid (Cholesterol) Screening 05/02/2027, 05/06/2016, 02/21/2013 DTaP,Tdap,and Td Vaccines (4 - Td or Tdap) 05/19/2027 05/19/2017, 11/30/2007, 11/30/2007, Additional history exists Colonoscopy 04/05/2031 04/05/2021 Colorectal Cancer Screening 04/05/2031 HIV Screening Completed 11/04/2008 Medical Devices Implanted Type Area Manufacturing Teacher Device Identifier Shelf Expiration Date Model / Serial / Lot Sm Frag-Screw Canc Part 4 X 45 - Bronson [id number] Implanted:Qty: 1 on 05/02/2008 Hardware e.g. pins/screws/ rods Depuy Synthes Description:Device Manufactu rer - Synthes. Device Status Text - [id number]. Small Frag-Screw Evan 3.5x24 - Bronson [id number] Implanted:Qty: 1 on 05/02/2008 Hardware e.g. pins/screws/ rods Depuy Synthes Description:Device Manufactu rer - Synthes. Device Status Text - [id number]. Sm Frag-Screw Canc Part 4 X 28 - Bronson [id number] Implanted:Qty: 1 on 05/02/2008 Hardware e.g. pins/screws/ rods Depuy Synthes Description:Device Manufactu rer - Synthes. Device Status Text - [id number]. Syn-Plate 3.5 T 3x5ho Rt - Bronson [id number] Implanted:Qty: 1 on 05/02/2008 Hardware e.g. pins/screws/ rods Depuy Synthes Description:Device Manufactu rer - Synthes. Device Status Text - [id number]. Small Frag-Screw Evan 3.5x16 - Bronson [id number] Implanted:Qty: 1 on 05/02/2008 Hardware e.g. pins/screws/ rods Depuy Synthes Description:Device Manufactu rer - Synthes. Device Status Text - [id number]. [place]-Mitek Mini Quick 2-0 - Bronson [id number] Implanted:Qty: 1 on 05/02/2008 Hardware e.g. pins/screws/ rods Depuy Mitek Description:Device Manufactu rer - [employer] Device Status Text - [id number]. Sm Frag-Screw Canc Part 4 X 24 - Bronson [id number] Implanted:Qty: 2 on 05/02/2008 Hardware e.g. pins/screws/ rods Depuy Synthes Description:Device Manufactu rer - Synthes. Device Status Text - [id number]. Sm Frag-Screw Canc Part 4 X 30 - Bronson [id number] Implanted:Qty: 1 on 05/02/2008 Hardware e.g. pins/screws/ rods Depuy Synthes Description:Device Manufactu rer - Synthes. Device Status Text - [id number]. Sm Frag-Screw Canc Part 4 X 26 - Bronson [id number] Implanted:Qty: 1 on 05/02/2008 Hardware e.g. pins/screws/ rods Depuy Synthes Description:Device Manufactu rer - Synthes. Device Status Text - [id number]. Small Frag-Screw Evan 3.5x20 - Bronson [id number] Implanted:Qty: 1 on 05/02/2008 Hardware e.g. pins/screws/ rods Depuy Synthes Description:Device Manufactu rer - Synthes. Device Status Text - HARDWARE-7599. Procedures Procedure Name Priority Date/Time Associated Diagnosis Comments BI BREAST SCREENING BILATERAL WITH TOMOSYNTHESIS RAD - Routine (most inpatients and all outpatients) 08/22/2022 1:00 PM CUSTOMER SERVICE ADVOCATE Screening Mammogram Breast Cancer LIPID PANEL, S Routine 05/02/2022 11:13 AM CDT Screening Lipid THYROID-STIMULATING HORMONE-SENSITIVE (S-TSH) Routine 05/02/2022 11:13 AM CDT Hypothyroidism BASIC METABOLIC PANEL, S/P Routine 08/07/2021 4:17 PM CUSTOMER SERVICE ADVOCATE Preoperative Exam from Last 3 Months or Most Recently Relevant to Health Maintenance Results * BI Breast Screening Bilateral with Tomosynthesis (08/22/2022 1:00 PM CUSTOMER SERVICE ADVOCATE) Anatomical Region Laterality Modality Breast, Breast Imaging RST L OS, Breast Imaging ARZ LOS, Breast Imaging FLA LOS Bilateral Mammography 08/22/2022 4:24 PM CUSTOMER SERVICE ADVOCATE Impressions 08/22/2022 4:25 PM CUSTOMER SERVICE ADVOCATE Negative. RECOMMENDATION: ??Annual Screening Mammogram ASSESSMENT: ??BI-RADS: 1: Negative. Narrative 08/22/2022 4:25 PM CUSTOMER SERVICE ADVOCATE EXAM: ??BI BREAST SCREENING BILATERAL WITH TOMOSYNTHESIS [...] L Greenwood APRNNJimmy., M.S.N. LAB BLOOD ADD-ON [facility] [address] [place] [address], [facility] [place] [facility] - [facility] [address] [place] [address] * S-TSH (Thyroid-Stimulating Hormone - Sensitive) (05/02/2022 11:13 AM CDT) TSH, Sensitive 2.2 0.3 - 4.2 mIU/L 05/02/2022 12:18 PM CDT AUST Blood (Blood, Venous) 05/02/2022 11:13 AM CDT 05/02/2022 11:15 AM CDT Jorge L Greenwood APRNNJimmy., M.S.N. LAB BLOOD ADD-ON [facility] [address] [place] [address], [facility] - [facility] [address] [place] [address] * Basic Metabolic Panel (08/07/2021 4:17 PM CUSTOMER SERVICE ADVOCATE) Potassium, P 4.4 3.6 - 5.2 mmol/L 08/07/2021 4:37 PM CUSTOMER SERVICE ADVOCATE [facility] Sodium, P 137 135 - 145 mmol/L 08/07/2021 4:37 PM CUSTOMER SERVICE ADVOCATE [facility] Chloride, P 102 98 - 107 mmol/L 08/07/2021 4:37 PM CUSTOMER SERVICE ADVOCATE FIDENCIO Bicarbonate, P 26 22 - 29 mmol/L 08/07/2021 4:37 PM CUSTOMER SERVICE ADVOCATE [facility] Anion Gap, P 9 7 - 15 08/07/2021 4:37 PM CUSTOMER SERVICE ADVOCATE [facility] BUN (Blood Urea Nitrogen), P 17 6 - 21 mg/dL 08/07/2021 4:37 PM CUSTOMER SERVICE ADVOCATE [facility] Creatinine 0.78 0.59 - 1.04 mg/dL 08/07/2021 4:37 PM CUSTOMER SERVICE ADVOCATE [facility] eGFR-Black/Afric an Belgian >90 >=60 mL/min/BSA 08/07/2021 4:37 PM CUSTOMER SERVICE ADVOCATE [facility] Comment: ----ADDITIONAL INFORMATION---- Estimated GFR calculated using the 2009 CKD_EPI creatinine equation. eGFR Non-Black/Regine n Belgian 89 >=60 mL/min/BSA 08/07/2021 4:37 PM CUSTOMER SERVICE ADVOCATE [facility] Comment: ----ADDITIONAL INFORMATION---- Estimated GFR calculated using the 2009 CKD_EPI creatinine equation. Calcium, Total, P 9.5 8.6 - 10.0 mg/dL 08/07/2021 4:37 PM CUSTOMER SERVICE ADVOCATE [facility] Glucose, P 103 70 - 140 mg/dL 08/07/2021 4:37 PM CUSTOMER SERVICE ADVOCATE [facility] Blood (Blood, Venous) 08/07/2021 4:17 PM CUSTOMER SERVICE ADVOCATE 08/07/2021 4:18 PM CUSTOMER SERVICE ADVOCATE Elyssa Altman APRN, C.N.P., D.N.P. L AB BLOOD ADD-ON [facility] [address] [place] [address], [facility] [address] [place] [address] from Last 3 Months or Most Recently Relevant to Health Maintenance Care Teams House Furnishings Supervisor Relationship Specialty Start Date End Date Randall Candelaria P.A.-C. [address] [place] [phone] PCP - General 03/09/24
--- OUTSIDE RECORDS SUMMARY | 2024-04-19 16:22 | XMS_ITS | Encounter Summary ---
Author Organization [facility] Address [address] [place] [address] Care Team Providers Care International Trade Teacher Name Role Phone Yazmin Chow, P.A.-C. Primary Care Prov ider Encounter Details Date Type Department Care Team (Late st Contact Info) Description 02/09/2024 Orders Only [facility] PCP [facility] MNT Yazmin Chow MPAS, P.A.-C. [address] [place] [address] Monitoring For Therapeutic Drug Therapy; Hypothyroidism Social History Tobacco Use Types Packs/Day Years [...] 12/28/2020 How often do you attend chur ch or orthodox services? 1 to 4 times per year 12/28/2020 Do you belong to any clubs o r organizations such as baptism groups, unions, fraternal or athletic groups, or [...] Answer Date Recorded PHQ-2 Score 0 06/09/2022 [facility] Occupat ional [facility] - Occupational Stress Questionnaire Answer Date Recorded [...] place to sleep or slept in a mcc (including now)? No 12/28/2020 Depression Answer Date [...] Date Recorded Dental: Regular Dentist Unknown 02/04/20 Employment Answer Date Recorded Employment status Employed and actively working without restrictions 12/28/2020 Education Answer Date Recorded What is the highest level of school you have completed or the highest degree you have received? Associate degree: occupational, technical, or vocational program 03/27/2019 Sex and Gender Information Value Date Recorded Sex Assigned at Female 08/02/2018 4:15 AM SIX SIGMA PROJECT MANAGER Gender Identity Female 08/02/2018 4:15 AM SIX SIGMA PROJECT MANAGER Sexual Orientation Straight 08/02/2018 4: 15 AM SIX SIGMA PROJECT MANAGER documented as of this encounter Plan of Treatment Scheduled Orders Name Type Priority Associated Diagnoses Orde r Schedule Basic Metabolic Panel Lab Routine Monitoring For Therapeutic Drug Therapy Expected: 02/23/2024, Expires: 08/07/2024 S-TSH (Thyroid-Stimulating Hormone - Sensitive) Lab Routine Hypothyroidism Expected: 02/23/2024, Expires: 08/07/2024 documented as of this encounter Visit Diagnoses Diagnosis Monitoring For Therapeutic Drug Therapy Hypothyroidism documented in this encounter Additional Health Concerns Assessment Noted Time PHQ-9 Depression Total Score: 4 06/09/20 22 3:54 PM CDT documented as of this encounter Care Teams International Trade Teacher Relationship Specialty Start Date End Date Yazmin Chow MPAS, P.A.-C. [address] [place] [address] PCP - General 09/24/22 03/08/24 documented as of this encounter
== END 2024-04-15 09:41 | disposition home or self-care (01) ==
LOC: NFLDREF 04-19 16:20
PROVIDERS: PCP Family Medicine; Referring Provider Family Medicine; Visit Provider Family Medicine
DX: R19.7 Diarrhea, unspecified (principal)
CPT/HCPCS: 87045; 87046; 87177; 87209; 87427; 87493; 87505

== ENCOUNTER 2024-05-30 07:52 | Outpatient (CLI) | payer BC, SELFPAY ==
--- OUTSIDE RECORDS SUMMARY | 2024-06-02 11:35 | XMS_ITS | Clinical Summary ---
Author Organization [facility] Address [place], [place] [address] Care Team Providers Care Press Operator Instant Print Shop Name Role Phone Galileo Montoya NP Primary [...] (1 of 2) 2021 COVID-19 vaccine series (2023- season) 2024 08/07/2021, 10/26/2020, 10/05/2020 Influenza for age 50-64 [...] , Ann Ibanez, RN(Nurse) Referring MD: Dean Noriega Indications/Pre-Op Diagnosis: Screening for colorectal malignant neoplasm, This is the patient's first colonoscopy, Incidental diarrhea noted Medications: Fentanyl 200 micrograms IV, Midazolam 4 mgIV, The level of sedation administered wasmoderate Procedure Description: The patient had risks, benefits and alternatives explained to andgave informed consent. The patient had a stable cardiopulmonary status and judged an adequate candidate for conscious sedation. The [id number] was passed through the anus and advanced [...] 11:18 AM Procedure Code(s): --- Professional --- 10490, Colonoscopy, flexible; with biopsy, single or multiple Diagnosis Code(s): --- Professional --- Z12.11, Encounter for screening formalignant neoplasm of colon CPT copyright 2020 [employer]. All rights reserved. The codes documented in this report are preliminary and upon scheduling manager reviewmay be revised to meet current compliance requirements. Scope In: 11:43:46 AM Scope Withdrawal Time 0 hours 8 minutes 5 seconds Scope Out: 12:09:02 PM Dean Noriega MD PROCEDURE ORD from Last 3 Months or Most Recently Relevant to Health Maintenance Care Teams Press Operator Instant Print Shop Relationship Specialty Start Date End Date Galileo Montoya NP PCP - General Nurse Practitioner 04/05/21
== END 2024-05-30 07:53 | disposition home or self-care (01) ==
PROVIDERS: PCP Family Medicine; Referring Provider Family Medicine; Visit Provider Family Medicine
DX: R79.89 Other specified abnormal findings of blood chemistry (principal); E03.9 Hypothyroidism, unspecified; E78.5 Hyperlipidemia, unspecified; R73.9 Hyperglycemia, unspecified; Z11.59 Encounter for screening for other viral diseases; Z91.89 Other specified personal risk factors, not elsewhere classified
CPT/HCPCS: 80053; 80061; 84443; 86803

== ENCOUNTER 2024-08-12 14:33 | Outpatient (CLI) | payer BC, SELFPAY ==
--- OUTSIDE RECORDS SUMMARY | 2024-08-12 14:35 | XMS_ITS | Data Portability ---
Author Organization [place] [facility] [place] Address [address] [place] [address] Care Team Providers Care Manager Software Name Role Phone CINDA LORENZO Primary Care Provider Assessment Encounter Date Assessment Date Assessment LastModified by Organization Details LastModified Time 07/04/2024 07/04/2024 Time spent reviewing the patient s medical record, diagnostic studies, performing a focused history and physical exam, educating the patient regarding the natural history of disease as it pertains to the patient, discussing treatment options and alternatives, medical decision making, and chartin-59 minutes. Not available 07/04/2024 14:24:24 Plan of Treatment Reminders Order Date Submit Date Provider Last Modified By Organization Details Last Modified Time Details Appointments Post Conserv ative Treatme ntRVT 2024 01:00P [facility] Not available Not available Not available Post Conserv ative Treatme nt MD 2024 01:30P [facility] Not available Not available Not available Lab None recorde d. Referral None recorde d. Procedures None recorde d. Surgeries None recorde d. Imaging None recorde d. Medication Orders None recorde d. Patient TargetsNo targets recorded. Patient Instructions Encounter Date Encounter Id Patient Instructions Last Modified By Organization Details Last Modified Time 07/04/2024 [id number] PROCEDURE RECOMMENDATIONS 1. Endovenous radiofrequency ablation of the left great saphenous vein (49215) 2. Endovenous radiofrequency ablation of the right great saphenous vein (49251) 3. Varithena ablation of the residual left great saphenous vein (92071) 4. Varithena ablation of the residual right great saphenous vein (95099) 5. Ultrasound guided foam sclerotherapy of the residual incompetent tributaries and varicosities greater than 3.0mm of the left leg (38277, 66592) - 2 sessions 6. Ultrasound guided foam sclerotherapy of the residual incompetent tributaries and varicosities greater than 3.0mm of the right leg (09931, 79408) - 2 sessions Not available 07/04/2024 14:24:46 Reason for Referral None Reported. Problems Name Problem SNOMED Code Status Onset Date Resolution Date Notes Provider Name and Address Organization Details Recorded Time Hypothyroidism 56842825 Active 2023 Demetra Fisher PA-C [address], [place], [address], [place] [facility] 13:55:15 Asthma 605658455 Active 2023 LENY BairesC [address], [place], [address], [facility] - [facility] 13:55:26 Problem Notes None recorded. Procedures Surgical History Date Name Laterality Status Provider Name and Address Organization Details Recorded Time Colonoscopy completed Demetra Fisher PA-C [address], [place], [address], [facility] - [facility] 07/04/2024 13:55:02 Hysterectomy completed LENY BairesC [address], [place], [address], [facility] - [facility] 07/04/2024 13:55:03 Orthopedic Surgery completed Demetra Fisher PA-C [address], [place], [address], [facility] - [facility] 07/04/2024 13:55:41 Hand Surgery completed JACY Baires-Anette [address], [place], [address], [facility] - [facility] 07/04/2024 13:55:03 Imaging Results None recorded. Procedure Notes None recorded. Medical Equipment None Reported. Medications Name Sig Start Date Stop Date Status Note LastModified by Organization Details LastModified Time fluticasone 250 mcg-salmete rol 50 mcg/dose blistr powdr for inhalation INHALE 1 PUFF INFECTION BY MOUTH TWICE A DAY active Not Available Not Available No t Available citalopram 10 mg tablet TAKE ONE TABLET(10 MG) BY MOUTH EVERY DAY active Not Available Not Available No t Available prednisone 20 mg tablet TAKE ONE TABLET BY MOUTH (20MG) TWICE A DAY 07/01 completed Not Available Not Available Not Available acetaminoph en 300 mg-codeine 30 mg tablet TAKE 1 TO 2 TABLETS BY MOUTH EVERY 4 TO 6 HOURS NEEDED. MAY CAUSE DROWSINES S 07/01 completed Not Available Not Available Not Available levothyroxi ne 75 mcg tablet TAKE ONE TABLET(75 MCG) BY MOUTH EVERY DAY active Not Available Not Available No t Available estradiol 0.5 mg tablet TAKE ONE-HALF TABLET (0.25MG) BY MOUTH DAILY. active Not Available Not Available No t Available albuterol sulfate HFA 90 mcg/actuati on aerosol inhaler INHALE 2 PUFF BY MOUTH EVERY 6-8 HOURS NEEDED FOR SHORTNESS OF BREATH OR WHEEZING 07/01 completed Not Available Not Available Not Available Vitals Date Recorded Body height Body mass index (BMI) Body weight Provider Name and Address Organization Details Last Updated DateTime 07/04/2024 170.18 cm 24.6 kg/m2 27481 g Demetra Fisher PA-C [address] [place], [address], [facility] 07/04/2024 13:54:38 Social History Question Answer Notes LastModified by Organizat ion Details LastModified Time Tobacco Smoking Status Never Smoker Demetra Fisher PA-C [address] [place], [address], [facility] 07/04/2024 13:54:59 What Is Your Level Of Alcohol Consumption? Occasional Information not available 07/04/2024 How Many Times Per Week Do You Consume Alcohol? Less Than 1 Time Per Week Information not available 07/04/2024 Are You Currently Employed? 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 3-4 Times Per Week Information not available 07/04/2024 Sex: Unknown Functional Status Question Answer Note LastModified by Organization D etails LastModified Time What is your exercise level? Moderate Information not available 07/04/2024 Mental Status None recorded. Family History Relationship Description Onset Age of this Age Resolved Age Notes LastModified by Organization Details LastModified Time Mother Varicose veins of lower extremity Not available 2023 13:54:44 Unspecified Relation Varicose veins of lower extremity Not available 2023 13:54:44 Medical History Condition Response Hypothyroidism Y Asthma Y Gynecological History Statement/Question Response How many childrens do you have? 2 Number of Miscarriages 0 Number of Pregnancies 2 Are you or planning to become p regnant? N Are you ? N Obstetrics History GPAL:G 0 P 0 0 0 0 Past Encounters Encounter ID Performer Location Encounter Start Date Encounter Closed Date Diagnosis/Indication Diagnosis SNOMED-CT Code Diagnosis ICD10 Code [id number] Kathy Thurman MD [facility] [address] [place] [address] 07/04/2024 13:38:20 07/07/2024 04:06:27 Pain co-occurrent and due to varicose veins of bilateral legs [id number] I83.813 [id number] Kathy Thurman MD [facility] [address] [place] [address] 07/04/2024 13:38:28 07/05/2024 10:57:57 Pain co-occurrent and due to varicose veins of bilateral legs 5002139874 6683782 I83.813 Health Concerns Section Related Observation LastModified by Organization Detai ls LastModified Time None Recorded Concern Status LastModified by Organization Details LastModified Time None Recorded Advance Directives Directive None Recorded Payers Encounter Date Sequence Insurance Name Policy Number Policy [place] Covered Member ID [place] Member ID Guarantor Name 07/04/2024 1 [place] [id number] Jesu Bermudez [id number] Ashley Bermudez 07/04/2024 1 [place] [id number] Jesu Bermudez [id number] Ashley Bermudez Notes Date Note Type Note Provider Name and Address Organization Details Recorded Time 07/04/2024 text/html PVC (Q4U) InitialReported bypatient.Please select the location of your concernRight Leg: Ankle/Foot; Left Leg: Ankle/Foot I have had symptoms:More than 1 year Have you ever experienced any of the following symptoms?Pain;Aching;T hrobbing;Tired legs/Fatigue;Heaviness ;Numbness/Tingling;Swe lling;Difficulty healing wounds/ulcers;Skin discoloration;Spider veins;Bulging veins When do the symptoms occur?Sitting;Standing up What activities of daily living do the symptoms affect?Sleep;Exercise; Work;Chores;Leisure Activities What relieves your symptoms?Avoidance of long periods of sitting/standing; Leg elevation; Over the counter medications Do you wear compression stockings to relieve your symptoms?Yes How long have you worn compression stockings?More than 6 months Have you ever been prescribed medical grade compression stockings?No Have you ever had a previous vein evaluation or treatment?No Have you ever been diagnosed with the following?None Kathy Thurman MD [address] [place], [address], [facility] - [facility] 07/04/2024 16:00:41 07/04/2024 text/html The patient is a 54 yo female who presents with complaints of bilateral lower extremity varicose veins and increasing symptoms for the past few years. Symptoms include: pain, aching, cramping, throbbing, restlessness, tired legs, heavy legs, fatigue, itching, burning, recurring swelling, spider veins, surface veins. There is no history of DVT, SVT, ulceration, cellulitis or phleborrhagia. Symptom location: Bilateral, ankle/leg/thigh; LLE > RLE Symptom severity: 5/10; moderately severe Symptoms occur with: prolonged sitting and standing, after exercise, and are worse later in the day. ADLs affected by symptoms:-Sleep: interfere with patient s ability to fall asleep and cause patient to awaken from sleep frequently.-Exercise/a ctivity: limit ability to exercise, including walking.-Work: Needs to take frequent breaks to walk and/or elevate legs.-Chores: Avoids chores or needs to take breaks to walk and/or elevate legs.-Leisure activities: Avoids activities or needs to take breaks to walk and/or elevate. Conservative measures implemented without relief of symptoms:-avoidance of prolonged periods of sitting or standing,-regular exercise including moderate daily walking,-leg elevation,-weight control,-GCS OTC,-OTC analgesics. Cyanoacrylate Adhesive Ablation Screening:Patient admits history of:-Reaction to bandage adhesives-Autoimmune conditionsPatient denies history of :-Eczema-Reaction to household or medical adhesives-Reaction to nail salon treatment-3 or more allergies Kathy Thurman MD [address] [place], [address], [place] [facility] 07/04/2024 16:01:55 OBGyn Episode No OBEpisode recorded.
--- OUTSIDE RECORDS SUMMARY | 2024-08-12 14:36 | XMS_ITS | Continuity of Care Document ---
Author Organization [facility] [place] Address [address] [place] [address] Care Team Providers Care Used Car Manager Name Role Phone CINDA LORENZO Primary Care Provider Assessment No assessment recorded. Plan of Treatment Reminders Order Date Submit [...] recorde d. Patient TargetsNo targets recorded. Patient InstructionsNo instructions recorded. Reason for Referral None Reported. Problems Name Problem SNOMED Code Status Onset Date Resolution Date Notes Provider Name and Address Organization Details Recorded Time Hypothyroidism 74409235 Active 2023 Demetra Fisher PA-C [address] [place], [address], [place] [facility] 13:55:15 Asthma 247954997 Active 2023 Demetra Fisher PA-C [address] [place], [address], [place] [facility] 13:55:26 Problem Notes None recorded. Procedures Surgical History Date Name Laterality Status Provider Name and Address Organization Details Recorded Time Colonoscopy completed Demetra Fisher PA-C [address] [place], [address], [place] [facility] 07/04/2024 13:55:02 Hysterectomy completed Demetra Fisher PA-C [address], [place], [address], [place] [facility] 07/04/2024 13:55:03 Orthopedic Surgery completed Demetra Fisher PA-C [address], [place], [address], [place] [facility] 07/04/2024 13:55:41 Hand Surgery completed NAT [address], [place], [address], [place] [facility] 07/04/2024 13:55:03 Imaging [...] Updated DateTime 07/04/2024 170.18 cm 24.6 kg/m2 81049 g [address] [place], [address], [place] [facility] 07/04/2024 13:54:38 Social History Question Answer Notes LastModified by Organizat ion Details LastModified Time Tobacco Smoking Status Never Smoker Demetra Fisher PA-C [address] [place], [address], [place] [facility] 07/04/2024 13:54:59 What Is Your Level Of Alcohol Consumption? Occasional Information not available 07/04/2024 How Many Times Per Week Do You Consume Alcohol? Less Than 1 Time Per Week Information not available 07/04/2024 Are You Currently Employed? 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 Information not available 07/04/2024 How Many Times [...] Diagnosis/Indication Diagnosis SNOMED-CT Code Diagnosis ICD10 Code [id number] MD Amrit Batista [address] [place] [address] 07/04/2024 13:38:20 07/07/2024 04:06:27 Pain co-occurrent and due to varicose veins of bilateral legs 5626393320 0728532 I83.813 [id number] MD Amrit Batista [address] [address] 07/04/2024 13:38:28 07/05/2024 10:57:57 Pain co-occurrent and due to varicose veins of bilateral legs 6093516946 3716457 I83.813 Health Concerns Section Related Observation LastModified by Organization Detai ls LastModified Time None Recorded Concern Status LastModified by Organization Details LastModified Time None Recorded Payers Encounter Date Sequence Insurance Name Policy Number Policy [place] Covered Member ID [place] Member ID Guarantor Name 07/04/2024 1 [place] [id number] Jesu Bermudez [id number] Ashley Bermudez Notes Date Note Type Note [...] the following?None Kathy Thurman MD [address] [place], [address], [facility] 07/04/2024 [...] treatment-3 or more allergies Kathy Thurman MD [address], [place], [address], [place] [facility] 07/04/2024 16:01:55 OBGyn Episode No OBEpisode recorded.
--- OUTSIDE RECORDS SUMMARY | 2024-08-12 14:36 | XMS_ITS | Clinical Summary ---
Author Organization [employer] [facility] Address [place], [place] [address] Care Team Providers Care Maori Liaison Adviser Name Role Phone Galileo Montoya NP Primary [...] adequate candidate for conscious sedation. The PCF-Q290AL [id number] was passed through the anus and advanced [...] 11:18 AM Procedure Code(s): --- Professional --- 71353, Colonoscopy, flexible; with biopsy, single or multiple Diagnosis Code(s): --- Professional --- Z12.11, Encounter for screening formalignant neoplasm of colon CPT copyright 2020 [employer]. All rights reserved. The codes documented in this report are preliminary and upon honing machine operator semiautomatic reviewmay be revised to meet current compliance requirements. Scope In: 11:43:46 AM Scope Withdrawal Time 0 hours 8 minutes 5 seconds Scope Out: 12:09:02 PM Dean Noriega MD PROCEDURE ORD from Last 3 Months or Most Recently Relevant to Health Maintenance Care Teams Maori Liaison Adviser Relationship Specialty Start Date End Date Galileo Montoya NP PCP - General Nurse Practitioner 04/05/21
--- OUTSIDE RECORDS SUMMARY | 2024-08-12 14:36 | XMS_ITS | Continuity of Care Document ---
Author Organization [place] [facility] [place] Address [address] [place] [address] Care Team Providers Care Split And Drum Room Supervisor Name Role Phone CINDA LORENZO Primary Care [...] By Organization Details Last Modified Time 07/04/2024 [id number] PROCEDURE RECOMMENDATIONS 1. Endovenous radiofrequency ablation of the left great saphenous vein (31204) 2. Endovenous radiofrequency ablation of the right great saphenous vein (07250) 3. Varithena ablation of the residual left great saphenous vein (04197) 4. Varithena ablation of the residual right great saphenous vein (22904) 5. Ultrasound guided foam sclerotherapy of the residual incompetent tributaries and varicosities greater than 3.0mm of the left leg (82680, 90004) - 2 sessions 6. Ultrasound guided foam sclerotherapy of the residual incompetent tributaries and varicosities greater than 3.0mm of the right leg (73855, 97273) - 2 sessions Not available 07/04/2024 14:24:46 Reason for Referral None Reported. Problems Name Problem SNOMED Code Status Onset Date Resolution Date Notes Provider Name and Address Organization Details Recorded Time Hypothyroidism 22747394 Active 2023 LENY BairesC [address], [place], [address], [facility] - [facility] 13:55:15 Asthma 615980562 Active 2023 JACY Baires-C [address], [place], [address], [facility] - [facility] 13:55:26 Problem Notes None recorded. Procedures Surgical History Date Name Laterality Status Provider Name and Address Organization Details Recorded Time Colonoscopy completed LENY BairesC [address], [place], [address], [facility] - [facility] 07/04/2024 13:55:02 Hysterectomy completed JACY Baires-C [address], [place], [address], [facility] - [facility] 07/04/2024 13:55:03 Orthopedic Surgery completed LENY BairesC [address], [place], [address], [facility] - [facility] 07/04/2024 13:55:41 Hand Surgery completed Demetra Fisher PA-C [address], [place], [address], [facility] 07/04/2024 13:55:03 Imaging Results [...] Updated DateTime 07/04/2024 170.18 cm 24.6 kg/m2 19436 g Demetra Fisher PA-C [address] [place], [address], [facility] 07/04/2024 13:54:38 Social History Question Answer Notes LastModified by Organizat ion Details LastModified Time Tobacco Smoking Status Never Smoker Demetra Fisher PA-C [address] [place], [address], [facility] 07/04/2024 13:54:59 What Is Your Level Of Alcohol Consumption? Occasional Information not available 07/04/2024 How Many Times Per Week Do You Consume Alcohol? Less Than 1 Time Per Week Information not available 07/04/2024 Are You Currently Employed? 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 Information not available 07/04/2024 How Many Times [...] Diagnosis/Indication Diagnosis SNOMED-CT Code Diagnosis ICD10 Code [id number] Kathy Thurman MD [facility] [address] [place] [address] 07/04/2024 13:38:20 07/07/2024 04:06:27 Pain co-occurrent and due to varicose veins of bilateral legs [id number] I83.813 [id number] Kathy Thurman MD [facility] [address] [place] [address] 07/04/2024 13:38:28 07/05/2024 10:57:57 Pain co-occurrent and due to varicose veins of bilateral legs 1806787415 2200383 I83.813 Health Concerns Section Related Observation LastModified by Organization Detai ls LastModified Time None Recorded Concern Status LastModified by Organization Details LastModified Time None Recorded Payers Encounter Date Sequence Insurance Name Policy Number Policy [place] Covered Member ID [place] Member ID Guarantor Name 07/04/2024 1 [place] [id number] Jesu Bermudez [id number] Ashley Bermudez Notes Date Note Type Note [...] diagnosed with the following?None Kathy Thurman MD [address] [place], [address], [facility] 07/04/2024 16:00:41 07/04/2024 [...] to nail salon treatment-3 or more allergies aKthy Thurman MD [address], [place], [address], [place] [facility] 07/04/2024 16:01:55 OBGyn Episode No OBEpisode recorded.
--- NOTE | 2024-08-12 14:40 | CRLHL7_ITS ---
For Patients: As a result of the Century Cures Act, medical imaging exams and procedure reports are released immediately into your electronic medical record. You may view this report before your referring provider. If you have questions, please contact your health care provider. BILATERAL SCREENING MAMMOGRAM WITH COMPUTER-AIDED DETECTION AND TOMOSYNTHESIS TECHNIQUE: CC and MLO views were obtained. These mammographic images have been obtained using full-field digital technique. These mammographic images were interpreted with the benefit of computer-aided detection. Breast Tomosynthesis was used in this interpretation. COMPARISON FILM: 08/22/22, 08/07/20. FINDINGS: There are scattered areas of fibroglandular density. IMPRESSION: There is no radiographic evidence for malignancy. ASSESSMENT: BI-RADS Category 1: Negative RECOMMENDATION: Routine screening mammogram in 1 year. A lay language report of this examination will be provided to the patient. Giovanni Ballard M.D. Diagnostic Radiologist [email or web address] SP/Dictated by: Giovanni Ballard MD @ 08/15/2024 12:12:00 PM (Electronically Signed)
== END 2024-08-12 14:34 | disposition home or self-care (01) ==
PROVIDERS: PCP Family Medicine; Visit Provider Family Medicine
DX: Z12.31 Encounter for screening mammogram for malignant neoplasm of breast (principal)
CPT/HCPCS: 77063; 77067

== ENCOUNTER 2025-06-05 08:15 | Outpatient (CLI) | payer BC, SELFPAY | END 2025-06-05 08:16 | disposition home or self-care (01) | LOC: NFLDREF 06-06 07:02 | PROVIDERS: PCP Family Medicine; Referring Provider Family Medicine; Visit Provider Family Medicine | DX: R53.83 Other fatigue (principal); E78.5 Hyperlipidemia, unspecified; E03.9 Hypothyroidism, unspecified; R73.9 Hyperglycemia, unspecified | CPT/HCPCS: 80053; 80061; 82306; 84443 ==

== ENCOUNTER 2025-07-05 14:48 | Outpatient (CLI) | payer BC, SELFPAY ==
--- NOTE | 2025-07-05 15:00 | CRLHL7_ITS ---
For Patients: As a result of the Century Cures Act, medical imaging exams and procedure reports are released immediately into your electronic medical record. You may view this report before your referring provider. If you have questions, please contact your health care provider. DXA BONE MINERAL DENSITY STUDY Reason for exam: Surgical menopause at age 40. Current height (in): 66.3. Weight (lb): 154. Menopause age: 40. Ethnicity: White. 1. Have you had a previous hip or vertebral fracture? No. 2. Have you had any fractures during your adult life which did not result from significant trauma (e.g., auto accident)? No. 3. Did either of your parents have a hip fracture? No. 4. Do you smoke? No. 5. Have you ever taken Glucocorticoids? Yes. 6. Do you have rheumatoid arthritis? No. 7. Do you have secondary osteoporosis? No. 8. Do you drink 3 or more alcoholic drinks per day? No. 9. Are you being treated for osteoporosis? No. 10. Have you ever taken any of the following medications: Actonel, Evista, Fosamax, Miacalcin, Reclast, Boniva, Forteo, HRT (i.e. estrogen/hormone therapy), Protelos, Prolia, Vitamin D, Calcium, other ??? please specify. ANSWER: Yes, Vitamin D and calcium. 11. Do you have any of the following medical conditions: Anorexia or bulimia, asthma or emphysema, end stage renal disease, hyperparathyroidism, any seizure disorders, cancer, inflammatory bowel diseases, hysterectomy, other ??? please specify. ANSWER: Yes, Asthma or emphysema and hypothyroidism. 12. What was your maximum height (inches)? 67. 13. Do you perform weight bearing exercise regularly? No. 14. Do you regularly consume dairy products? No. 15. Do you drink caffeinated beverages? Yes. 16. At what age did your period start? 12. 17. Are you premenopausal? No. 18. How many full-term pregnancies have you had? 2. 19. Have you ever missed your period for more than 6 months in a row (not including or menopause)? No. TECHNIQUE: Bone mineral density study was performed using the [employer]. FINDINGS: The results of the study expressed as bone mineral density (BMD) are as follows: Lumbar spine L1 to L4: BMD: 1.053 g/cm2. T-score: 0.1. Z-score: 1.1. Neck Left: BMD: 0.915 g/cm2. T-score: 0.6. Z-score: 1.6. Right: BMD: 0.837 g/cm2. T-score: -0.1. Z-score: 0.9. Total Left: BMD: 1.017 g/cm2. T-score: 0.6. Z-score: 1.3. Right: BMD: 0.958 g/cm2. T-score: 0.1. Z-score: 0.8. IMPRESSION: Normal bone density. *Comparison exams done prior to 02/2020 were performed on different unit, [facility]. Giovanni Ballard M.D. Diagnostic Radiologist [email or web address] ADRIANNA/orlando perry/Dictated by: Giovanni Ballard MD @ 07/06/2025 9:00:00 AM (Electronically Signed)
== END 2025-07-05 14:49 | disposition home or self-care (01) ==
LOC: RAD 14:49
PROVIDERS: PCP Family Medicine; Visit Provider Family Medicine
DX: E28.319 Asymptomatic premature menopause (principal)
CPT/HCPCS: 77080

== ENCOUNTER 2025-08-21 14:14 | Outpatient (CLI) | payer BC, SELFPAY ==
--- NOTE | 2025-08-21 14:30 | MR_ITS ---
[address] [address] Phone:?[phone] Fax:?[phone] Referring Physician Information: Yordan Quiroga M.D. [id number] [id number] Phone:?[phone] Fax:?[phone] Patient:Rut Bermudez D.O.B:?1970 Sex:?Female Phone:?[phone] [facility] MRN:?[id number] Exam Date:?08/21/2025 EXAM: MRI OF THE LEFT KNEE WITHOUT CONTRAST CLINICAL HISTORY: Ongoing left knee pain. Evaluate for medial meniscal tear. History of previous surgery to the left knee. COMPARISONS: Plain radiographs 08/15/2025. MRI 08/02/2021. Plain radiographs 07/19/2021. TECHNICAL: MR sequences of the left knee: sagittals: PD, PDFS coronals: PD, T2FS axials: PD, PDFS CONTRAST: None SEDATION: None FINDINGS: Bones: No fracture, bone marrow contusion, or other suspicious bone marrow signal abnormality. 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 Retinacula: The medial and lateral retinacula are intact. Fat pads: The infrapatellar, quadriceps, and prefemoral fat pads are unremarkable. Knee joint: Effusion: Trace left knee joint effusion. Popliteal cyst: Moderately sized popliteal cyst. Intra-articular bodies: None. Posteromedial corner: The semimembranosus and pes anserine tendons are intact. Medial compartment: Medial meniscus: Surgical changes status post repair of the posterior root of the medial meniscus. Attenuation and mild irregularity of the postoperative posterior root of the medial meniscus are findings that are within normal postoperative limits without evidence of discrete recurrent fluid intense tear. However, there is 4 mm of medial meniscal extrusion currently, similar compared to previous MRI 08/02/2021. Cartilage: Grade II to III chondromalacia over the weight-bearing portion of the medial femoral condyle does not appear progressed compared to previous MRI 08/02/2021. Lateral compartment: Lateral meniscus: Intact. Cartilage: Intact. Ligaments: Anterior cruciate ligament: Intact. Posterior cruciate ligament: Intact. Medial collateral ligament: Intact. Posterior oblique ligament: Intact. Fibular collateral ligament: Intact. Posterolateral corner: The distal biceps femoris tendon, iliotibial band, popliteus tendon, popliteus muscle, popliteofibular ligament, and arcuate ligament are intact. Extensor mechanism: Patellar tendon: Intact. Quadriceps tendon: Intact. IMPRESSION: 1. Surgical changes status post repair of the posterior root of the medial meniscus. Attenuation and mild irregularity of the postoperative posterior root of the medial meniscus are findings that are within normal postoperative limits without evidence of discrete recurrent fluid intense tear. However, there is 4 mm of medial meniscal extrusion currently, similar compared to previous MRI 08/02/2021. 2. 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 3. 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 No subchondral cystic change/subchondral edema-like signal. 4. Trace left knee joint effusion. Moderately sized popliteal cyst. 5. No ligamentous injury or lateral meniscal tear of the left knee. RCB Electronically signed on 08/22/2025 8:58:00 AM by Rodirgo Dillon M.D.
== END 2025-08-21 14:15 | disposition home or self-care (01) ==
PROVIDERS: PCP Family Medicine; Visit Provider Orthopaedic Surgery Sports Medicine
DX: M25.562 Pain in left knee (principal); S83.242A Other tear of medial meniscus, current injury, left knee, initial encounter; M22.42 Chondromalacia patellae, left knee; M25.462 Effusion, left knee; M71.22 Synovial cyst of popliteal space [Baker], left knee; Z98.890 Other specified postprocedural states
CPT/HCPCS: 73721

== ENCOUNTER 2025-09-05 18:46 | Outpatient (CLI) | payer BC, SELFPAY ==
--- NOTE | 2025-09-05 19:20 | CRLHL7_ITS ---
For Patients: As a result of the Century Cures Act, medical imaging exams and procedure reports are released immediately into your electronic medical record. You may view this report before your referring provider. If you have questions, please contact your health care provider. INDICATION: BILATERAL SCREENING MAMMOGRAM, ASYMPTOMATIC 55 Y/O FEMALE COMPARISON: 08/12/2024, 08/22/2022, 08/07/2020 TECHNIQUE: Digital mammogram in CC and MLO projections including computer-aided detection (CAD) and tomosynthesis. BREAST COMPOSITION: There are scattered areas of fibroglandular density. FINDINGS: No suspicious findings. ASSESSMENT: BI-RADS 1 Negative RECOMMENDATION: Annual screening mammogram. A lay language report of this examination will be provided to the patient. Dictated by: Giovanni Ballard MD @ 09/06/2025 09:39:00 (Electronically Signed)
== END 2025-09-05 18:47 | disposition home or self-care (01) ==
LOC: MAMMO 18:46
PROVIDERS: PCP Family Medicine; Visit Provider Family Medicine
DX: Z12.31 Encounter for screening mammogram for malignant neoplasm of breast (principal)
CPT/HCPCS: 77063; 77067